=== PATIENT | female | born 2000 | race Caucasian/White ===

== ENCOUNTER 2024-06-20 22:26 | Emergency (ER) | payer OTHER ==
[2024-06-20 22:33] VITALS: RESP 18; TEMP 98.5
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
[2024-06-20] MEDS: IBUPROFEN 600 MG TAB PO STA (23:03)
[2024-06-20] MEDS: ACETAMINOPHEN TAB 325 MG TAB PO STA (23:04)
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
[2024-06-21 00:59] VITALS: BP 118/84; PULSE 84
== END 2024-06-21 00:59 | disposition home or self-care (01) ==
LOC: EC 22:26
DX: S80.12XA Contusion of left lower leg, initial encounter (principal); Z04.1 Encounter for examination and observation following transport accident; Y99.0 Civilian activity done for income or pay
CPT/HCPCS: 72100; 99284

== ENCOUNTER 2024-06-22 18:32 | Inpatient (IN) | payer OTHER ==
[2024-06-22] MEDS: CYCLOBENZAPRINE 10 MG TAB PO STA (19:33)
[2024-06-22] MEDS: KETOROLAC 15 MG/ML 1 ML VIAL IM STA (19:33)
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
[2024-06-22 20:42] LABS: Appearance,Urine Cloudy (Clear); Bilirubin,Urine Negative (Negative); Blood,Urine Negative (Negative); Color,Urine Light Yellow; Glucose,Urine (UA) Negative (Negative); Ketones,Urine Negative (Negative); Leukocyte Esterase,Urine Moderate (Negative); Mucus,Urine Occasional /hpf; Nitrite,Urine Negative (Negative); PH, Urine 5.5 (5.0-8.0); Protein,Urine Negative (Negative); RBC,Urine <1 /hpf (0-5); Squamous Epithelial Cell,Urine 5 /hpf (0-4); Urobilinogen,Urine <2.0 mg/dL (<2.0); WBC,Urine 7 /hpf (0-5)
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
[2024-06-22] MEDS ORDERED: MORPHINE SULFATE 4 MG/ML SYRINGE IV PRN (21:56)
[2024-06-22] MEDS: SODIUM CHLORIDE 0.9% 1,000 ML IV SCH (23:14)
[2024-06-22 23:43] LABS: ALT 19 U/L (4-34); AST 31 U/L (14-36); African American GFR (CKD) >90 (>60 ml/min/1.73 sqM); Albumin 4.6 g/dL (3.5-5.0); Alkaline Phosphatase 76 U/L (38-126); Anion Gap 13 mmol/L; Blood Urea Nitrogen 10 mg/dL (7-17); Calcium 9.6 mg/dL (8.4-10.2); Carbon Dioxide 25 mmol/L (22-30); Chloride 104 mmol/L (98-107); Glucose 93 mg/dL (74-99); Magnesium 2.4 mg/dL (1.6-2.3); Non-African American GFR(CKD) >90 (>60 ml/min/1.73 sqM); Sodium 142 mmol/L (137-145); Total Bilirubin 0.6 mg/dL (0.2-1.3); Total Protein 7.8 g/dL (6.3-8.2)
[2024-06-23 00:05] LABS: Basophils # (A) 0.05 10*3/uL (0.00-0.10); Basophils % (A) 0.6 %; Eosinophils % (A) 2.4 %; HCT 41.6 % (37.2-46.3); HGB 14.6 g/dL (12.0-15.0); Lymphocytes # (A) 4.94 10*3/uL (0.90-5.00); Lymphocytes % (A) 58.5 %; MCH 30.4 pg (27.0-32.0); MCHC 35.1 g/dL (32.0-37.0); MCV 86.5 fL (80.0-97.0); Mean Platelet Volume 10.6 fL (9.5-12.2); Monocytes # (A) 0.67 10*3/uL (0.20-1.00); Monocytes % (A) 7.9 %; Neutrophils # (A) 2.56 10*3/uL (1.80-7.70); Neutrophils % (A) 30.4 %; Platelet Count 283 10*3/uL (140-440); RBC 4.81 10*6/uL (4.10-5.20); RDW 11.9 % (11.5-14.5); WBC 8.44 10*3/uL (4.50-10.00)
[2024-06-23 00:26] LABS: RBC Morphology Normal
[2024-06-23] MEDS: KETOROLAC 15 MG/ML 1 ML VIAL IVP PRN (01:35)
[2024-06-23 07:50] VITALS: BP 90/58; PULSE 60; RESP 16; TEMP 98.3
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
== END 2024-06-23 17:33 | disposition home or self-care (01) | DRG 552 ==
LOC: EC 18:32 → 4SSUR 22:40
PROVIDERS: ADMIT Orthopaedic Surgery Orthopaedic Surgery of the Spine; ATTEND Orthopaedic Surgery Orthopaedic Surgery of the Spine
DX: S32.029A Unspecified fracture of second lumbar vertebra, initial encounter for closed fracture (principal); F90.9 Attention-deficit hyperactivity disorder, unspecified type; Z79.899 Other long term (current) drug therapy; Y93.G9 Activity, other involving cooking and grilling; Y92.511 Restaurant or cafe as the place of occurrence of the external cause; Y99.0 Civilian activity done for income or pay; V03.19XA Pedestrian with other conveyance injured in collision with car, pick-up truck or van in traffic accident, initial encounter
CPT/HCPCS: 71110; 72131; 80053; 81001; 81025; 83735; 85025; 96372; 99285